=== PATIENT | male | born 1995 | race African-American/Black ===

== ENCOUNTER 2016-11-06 08:45 | Inpatient (IN) | payer OTHER, MEDICAID ==
[~2016-11-06] VITALS: Ht 182.9 cm; Wt 61.8 kg
[2016-11-06] VITALS (8 sets, daily range): BP systolic 113–134; BP diastolic 63–78; PULSE 62–83; RESP 15–18; TEMP 96.1–98.6; O2SAT 97–100
[2016-11-06 09:04] LABS: I-STAT POTASSIUM 3.4 MMOL/L (3.5-4.9)
[2016-11-06 09:05] LABS: AUTOMATED NEUTROPHIL # 6.1 TH/MM3 (1.8-7.7); BASOPHIL % 0.2 % (0.0-2.0); EOSINOPHIL % 0.3 % (0.0-4.0); HEMATOCRIT 40.1 % (39.0-51.0); LYMPH % 27.4 % (9.0-44.0); LYMPHOCYTE # 2.6 TH/MM3 (1.0-4.8); MEAN CELL VOLUME 80.1 FL (80.0-100.0); MEAN CORPUSCULAR HEMOGLOBIN 26.7 PG (27.0-34.0); MEAN CORPUSCULAR HGB CONC 33.4 % (32.0-36.0); MONO % 6.6 % (0.0-8.0); NEUT % 65.5 % (16.0-70.0); PLATELET COUNT 126 TH/MM3 (150-450); RED BLOOD COUNT 5.01 MIL/MM3 (4.50-5.90); RED CELL DISTRIBUTION WIDTH 13.3 % (11.6-17.2); WHITE BLOOD COUNT 9.3 TH/MM3 (4.0-11.0)
[2016-11-06 09:07] LABS: HEMO FLAGS AUTO DIFF
[2016-11-06 09:16] LABS: APTT (PATIENT) 23.9 SEC (24.3-30.1); PROTHROMBIN TIME - PATIENT 11.3 SEC (9.8-11.6)
[2016-11-06] MEDS ORDERED: IOHEXOL 350 MG/ML 10 ML VIAL (for RAD DIAG) IV ONE ×2 (09:21→15:28)
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
[2016-11-06] MEDS ORDERED: MORPHINE SULFATE 4 MG/ML INJ IV PUSH ONE (09:45)
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
[2016-11-06 09:56] LABS: BANDS 7 % (0-6); EOSINOPHILS 1 % (0-4); METAMYELOCYTES 3 % (0-1); NEUTROPHIL # MANUAL DIFF 5.8 TH/MM3 (1.8-7.7); POLYS (SEG NEUTROPHILS) 52 % (16-70); WBC DIFF SAMPLE 100
[2016-11-06 09:57] LABS: PLATELET ESTIMATE SMEAR LOW (NORMAL); PLATELET MORPHOLOGY NORMAL (NORMAL); SCAN/DIFF FINAL DIFF MANUAL
[2016-11-06] MEDS ORDERED: Post-op Orders (for Pharmacy) MISC XX ONE (10:00)
[2016-11-06] MEDS ORDERED: NALOXONE HCL 0.4 MG/ML AMP IV PRN (10:00)
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
[2016-11-06] MEDS: oxyCODONE/ACETAMINOPHEN 5 MG/325 MG TAB PO PRN ×2 (14:01→20:26)
[2016-11-06] MEDS ORDERED: LIDOCAINE HCL 5% PATCH T-DERMAL SCH (14:15)
[2016-11-06] MEDS: METHOCARBAMOL 500 MG TAB PO SCH ×3 (14:15→20:26)
[2016-11-06] MEDS: ONDANSETRON HCL 4 MG/2 ML VIAL IV PRN ×2 (15:10→23:28)
--- NOTE | 2016-11-06 15:53 | RADRPT ---
EXAM DATE/TIME: 11/06/2016 15:12 [facility] COMPARISON: CT CERVICAL SPINE W/O CONTRAST, November 06, 2016, 8:57. INDICATIONS : Evaluate for vertebral artery injury. IV CONTRAST: 65 cc Omnipaque 350 (iohexol) IV RADIATION DOSE: 28.49 CTDIvol (mGy) MEDICAL HISTORY : C1-C2 subluxation. SURGICAL HISTORY : None. ENCOUNTER: Initial ACUITY: 1 day PAIN SCALE: 9/10 LOCATION: Bilateral neck Elevated flow velocities and ICA/CCA ratios have been found to correlate with increased degrees of vessel stenosis, calculated as percentage of diameter relative to a normal segment of distal ICA/CCA. TECHNIQUE: Volumetric scanning was performed using a multirow detector CT scanner. The data was post processed with a variety of visualization algorithms including full-volume maximum intensity projection, multip lanar sliding thin-slab reformation, curved-planar reformation, and surface-rendering techniques. Us ing automated exposure control and adjustment of the mA and/or kV according to patient size, radiatio n dose was kept as low as reasonably achievable to obtain optimal diagnostic quality images. FINDINGS: AORTIC ARCH: There is a three-vessel origin of the great vessels from the aorta. No evidence of ostial narrowing. RIGHT CAROTID: The common carotid artery is intact. The carotid bulb has a normal configuration without ulceration o r narrowing. The internal carotid artery lumen is smooth without stenosis. The external carotid arcelia ry is intact. LEFT CAROTID: The common carotid artery is intact. The carotid bulb has a normal configuration without ulceration or narrowing. The internal carotid artery lumen is smooth without stenosis. The external carotid ar keanu is intact. VERTEBRALS: The vertebral arteries have a symmetric diameter. No stenotic lesions are seen. The right vertebral artery exits the foramen transversarium at the C4 level on the right side and then courses all the wa y down to insertion site onto the subclavian artery. There is no evidence for dissection of either of the vertebral arteries and theyappear patent. Fracture dislocation of C1-2 is again identified. CONCLUSION: Fracture dislocation of C1-2 and the vertebral arteries appear intact, however the right side exits t he foramen transversarium at the level of C4 and then courses down to insertion site onto the subclav glen artery. Otilio Abdalla MD on November 06, 2016 at 15:45 Board Certified Radiologist. This report was verified electronically.
[2016-11-06] MEDS: DOCUSATE SODIUM 100 MG CAP PO SCH (20:25)
[2016-11-06] MEDS: SODIUM CHLORIDE 0.9% FLUSH 10 ML FLUSH IV FLUSH SCH (20:27)
[2016-11-06] MEDS: MAGNESIUM HYDROXIDE SUSP 30 ML CUP PO SCH (20:28)
[2016-11-06] MEDS ORDERED: REMOVE OLD PATCH T-DERMAL SCH (21:00)
[2016-11-06] MEDS ORDERED: oxyCODONE/ACETAMINOPHEN 5 MG/325 MG TAB PO PRN (23:30)
[2016-11-07 00:51] VITALS: BP 131/78; PULSE 70; RESP 18; TEMP 97.6; O2SAT 100
[2016-11-07] MEDS: HYDROmorphone HCL PF 1 MG/ML VIAL IV PRN ×6 (01:46→22:40)
[2016-11-07 04:06] VITALS: BP 136/73; PULSE 70; RESP 17; TEMP 96.1; O2SAT 98
[2016-11-07] MEDS ORDERED: CHLORHEXIDINE GLUCONATE 2 % 1 PACK (2 CLOTHS) TOPICAL PRN (04:45)
[2016-11-07] MEDS ORDERED: SODIUM CHLORID 0.9% 500 ML IV PRN (04:45)
[2016-11-07] MEDS ORDERED: INSULIN HUMAN REGULAR 1,000 UNITS/10 ML VIAL SQ PRN (04:45)
[2016-11-07] MEDS ORDERED: POVIDONE IODINE 5% (ANTISEPSIS KIT) 4 APPLICATIONS EACH NARE PRN (04:45)
[2016-11-07] MEDS ORDERED: LACTATED RINGER'S 1000 ML IV PRN (04:45)
[2016-11-07] MEDS: METHOCARBAMOL 500 MG TAB PO SCH ×3 (04:55→19:32)
[2016-11-07] MEDS: REMOVE OLD PATCH T-DERMAL SCH (05:00)
[2016-11-07 05:12] LABS: AMPHETAMINE, URINE NEG (NEG); BARBITURATES, URINE NEG (NEG); COCAINE, URINE NEG (NEG)
--- NOTE | 2016-11-07 06:47 | RADRPT ---
EXAM DATE/TIME: 11/07/2016 06:00 [facility] COMPARISON: CHEST SINGLE AP, November 06, 2016, 8:39. INDICATIONS : Chest, neck and rib pain post trauma MEDICAL HISTORY : right rib fracture, possible contusion, small bilateral pneumothorax SURGICAL HISTORY : None. ENCOUNTER: Subsequent ACUITY: 1 day PAIN SCORE: 6/10 LOCATION: Bilateral chest FINDINGS: The cardiac silhouette is normal in transverse diameter. Tiny left apical pneumothorax is present. Co ntusion in the left base is evident. The right lung is free of acute parenchymal opacity. CONCLUSION: 1. Small left apical pneumothorax. Kwame Lopez MD on November 07, 2016 at 6:42 Board Certified Radiologist. This report was verified electronically.
[2016-11-07 07:29] VITALS: BP 111/66; PULSE 57; RESP 16; TEMP 96.3; O2SAT 100
[2016-11-07 07:35] LABS: AUTOMATED NEUTROPHIL # 9.4 TH/MM3 (1.8-7.7); BASOPHIL % 0.2 % (0.0-2.0); EOSINOPHIL % 0.3 % (0.0-4.0); HEMATOCRIT 37.7 % (39.0-51.0); LYMPH % 14.4 % (9.0-44.0); LYMPHOCYTE # 1.8 TH/MM3 (1.0-4.8); MEAN CELL VOLUME 79.9 FL (80.0-100.0); MEAN CORPUSCULAR HEMOGLOBIN 25.6 PG (27.0-34.0); MONO % 8.9 % (0.0-8.0); NEUT % 76.2 % (16.0-70.0); PLATELET COUNT 99 TH/MM3 (150-450); RED BLOOD COUNT 4.71 MIL/MM3 (4.50-5.90); RED CELL DISTRIBUTION WIDTH 13.5 % (11.6-17.2); WHITE BLOOD COUNT 12.3 TH/MM3 (4.0-11.0)
[2016-11-07 07:44] LABS: HEMO FLAGS AUTO DIFF
[2016-11-07 08:13] LABS: PLATELET ESTIMATE SMEAR LOW (NORMAL); PLATELET MORPHOLOGY NORMAL (NORMAL); SCAN/DIFF AUTO DIFF CONFIRMED
[2016-11-07 08:20] LABS: BICARBONATE 27.4 MEQ/L (21.0-32.0); POTASSIUM 3.4 MEQ/L (3.5-5.1)
[2016-11-07] MEDS: DOCUSATE SODIUM 100 MG CAP PO SCH ×2 (09:46→19:26)
[2016-11-07] MEDS: SODIUM CHLORIDE 0.9% FLUSH 10 ML FLUSH IV FLUSH SCH ×2 (09:47→19:27)
[2016-11-07] MEDS: PANTOPRAZOLE SOD 40 MG DELAYED RELEASE TAB PO SCH ×2 (09:51→10:00)
[2016-11-07] MEDS: SODIUM CHLORIDE 0.9% FLUSH 10 ML FLUSH IV FLUSH PRN ×2 (10:15→14:57)
[2016-11-07] MEDS ORDERED: POTASSIUM CHLORIDE 20 MEQ CONTROLLED RELEASE TAB PO ONE (11:45)
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
[2016-11-07 12:00] VITALS: BP 116/72; PULSE 58; RESP 16; TEMP 96; O2SAT 100
[2016-11-07 15:10] VITALS: BP 127/66; PULSE 59; RESP 16; TEMP 96.6; O2SAT 100
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
[2016-11-07] MEDS: SODIUM CHLOR 0.9% 1000 ML INJ 1,000 ML IV SCH (16:36)
[2016-11-07] MEDS: LIDOCAINE HCL 5% PATCH T-DERMAL SCH (17:30)
[2016-11-07] MEDS: MAGNESIUM HYDROXIDE SUSP 30 ML CUP PO SCH (19:28)
[2016-11-07 20:00] VITALS: BP 133/71; PULSE 55; RESP 17; TEMP 95.6; O2SAT 100
[2016-11-08] VITALS: BP 129/65; PULSE 58; RESP 16; TEMP 96.5; O2SAT 98
[2016-11-08] MEDS: diphenhydrAMINE HCL 50 MG/ML VIAL IV PUSH PRN (00:56)
[2016-11-08] MEDS: SODIUM CHLOR 0.9% 1000 ML INJ 1,000 ML IV SCH ×2 (00:56→14:51)
[2016-11-08] MEDS: HYDROmorphone HCL PF 1 MG/ML VIAL IV PRN ×6 (02:14→22:51)
[2016-11-08 04:00] VITALS: BP 131/70; PULSE 58; RESP 17; TEMP 96.9; O2SAT 97
[2016-11-08] MEDS: REMOVE OLD PATCH T-DERMAL SCH (05:00)
[2016-11-08] MEDS: METHOCARBAMOL 500 MG TAB PO SCH ×3 (05:25→21:54)
[2016-11-08 06:57] LABS: HEMATOCRIT 37.3 % (39.0-51.0); MEAN CELL VOLUME 80.5 FL (80.0-100.0); MEAN CORPUSCULAR HGB CONC 32.3 % (32.0-36.0); PLATELET COUNT 99 TH/MM3 (150-450); RED BLOOD COUNT 4.64 MIL/MM3 (4.50-5.90); RED CELL DISTRIBUTION WIDTH 13.3 % (11.6-17.2)
[2016-11-08 07:12] LABS: REVIEW FLAG FINAL
--- NOTE | 2016-11-08 07:12 | RADRPT ---
EXAM DATE/TIME: 11/08/2016 05:41 [facility] COMPARISON: CHEST SINGLE AP, November 07, 2016, 6:00. INDICATIONS : Chest , neck and rib pain, short of breath, evaluate left pneumothorax MEDICAL HISTORY : cervical spine fracture, pneumothorax, rib fracture SURGICAL HISTORY : None. ENCOUNTER: Subsequent ACUITY: 2 days PAIN SCORE: 6/10 LOCATION: Left chest FINDINGS: Compare with November 07. Again seen is a pneumatocele in the lower left lung likely associated with trauma and small lung laceration. There is some increased fluid and airspace disease around the pneumatocel e compared with November 07. No significant effusion. Right lung remains clear. Heart size normal. CONCLUSION: 1. Slight increase in fluid and airspace disease around left-sided pneumatocele that is likely relate d to a small lung laceration and associated contusion. Right lung remains clear. No pneumothorax iden tified. Pradeep Torres MD on November 08, 2016 at 7:06 Board Certified Radiologist. This report was verified electronically.
[2016-11-08 07:28] LABS: BICARBONATE 26.4 MEQ/L (21.0-32.0); MAGNESIUM 1.9 MG/DL (1.5-2.5); POTASSIUM 3.9 MEQ/L (3.5-5.1)
[2016-11-08 08:02] VITALS: BP 129/76; PULSE 69; RESP 18; TEMP 97.9; O2SAT 99
[2016-11-08] MEDS: SODIUM CHLORIDE 0.9% FLUSH 10 ML FLUSH IV FLUSH SCH ×2 (08:33→19:34)
[2016-11-08] MEDS: DOCUSATE SODIUM 100 MG CAP PO SCH ×3 (08:34→21:55)
[2016-11-08] MEDS: PANTOPRAZOLE SOD 40 MG DELAYED RELEASE TAB PO SCH (08:34)
[2016-11-08] MEDS: diphenhydrAMINE HCL 50 MG CAP PO PRN ×3 (08:35→21:55)
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
[2016-11-08] MEDS ORDERED: LIDOCAINE 1%/EPINEPHrine 1:100,000 SOLN 50 ML VIAL ONE (10:31)
--- NOTE | 2016-11-08 10:32 | RADRPT ---
EXAM DATE/TIME: 11/08/2016 10:14 [facility] COMPARISON: CT BRAIN W/O CONTRAST, November 06, 2016, 8:57. INDICATIONS : Altered mental status. RADIATION DOSE: 56.35 CTDIvol (mGy) MEDICAL HISTORY : None SURGICAL HISTORY : None. ENCOUNTER: Initial ACUITY: 1 day PAIN SCALE: 0/10 LOCATION: cranial TECHNIQUE: Multiple contiguous axial images were obtained of the head. Using automated exposure control and adj ustment of the mA and/or kV according to patient size, radiation dose was kept as low as reasonably a chievable to obtain optimal diagnostic quality images. FINDINGS: CEREBRUM: The ventricles are normal for age. No evidence of midline shift, mass lesion, hemorrhage or acute in farction. No extra-axial fluid collections are seen. POSTERIOR FOSSA: The cerebellum and brainstem are intact. The 4th ventricle is midline. The cerebellopontine angle i s unremarkable. EXTRACRANIAL: The visualized portion of the orbits is intact. SKULL: The calvaria is intact. No evidence of skull fracture. CONCLUSION: No acute disease. Velasquez Callahan MD on November 08, 2016 at 10:24 Board Certified Radiologist. This report was verified electronically.
[2016-11-08] MEDS ORDERED: KETAMINE HCL 500 MG/5 ML VIAL IV ONE (12:00)
[2016-11-08] MEDS ORDERED: PROPOFOL 200 MG/20 ML AMP IV ONE (12:00)
[2016-11-08] MEDS ORDERED: DO NOT ADM ANY ANTICOAGULANT DRUGS PRN (12:06)
[2016-11-08] MEDS ORDERED: *morphine SULFATE 8 MG/ML PERIprocedure ONLY ONE (12:26)
--- NOTE | 2016-11-08 12:32 | PD.OP ---
Operative Report Date of Surgery: November 08, 2016 Preoperative Diagnosis: (1) Cervical spine fracture (2) C1-C2 subluxation C1-2 right lateral mass fracture-rotational subluxation with locked lateral mass. Postoperative Diagnosis: (1) Cervical spine fracture (2) C1-C2 subluxation C1-2 right lateral mass fracture-rotational subluxation with locked lateral mass. Procedure: 1. Intraoperative closed reduction C1-2 rotational subluxation with locked lateral mass 2. Halo placement Anesthesia: Conscious sedation, local anesthesia 1% Xylocaine Surgeon: Milan Hernández Verifier Operator(s): Lobo Koenig Operation and Findings: The procedure was performed in the operating room The procedure was discussed with the patient and family prior to surgery and consent obtained and signed by the patient's mother. Appropriate time out procedure was performed with all personal present and in agreement The patient was transferred to the 3080 table on the spine board in supine position with cervical collar in place. He was then lifted onto the back of the halo vest and the anterior vest was in position and the straps secured. The undersigned controlled positioning of the head and neck throughout the procedure. The bilateral occipital region was shaved with the clippers and the frontal and occipital regions sterilely prepped with Betadine. 1% Xylocaine with epinephrine was used for local infiltration with the pin placement sites The undersigned maintained control of the head ring which was held in proper position and the frontal and occipital pins were simultaneously advanced into the cranium using finger pressure, followed by final tightening with the torque wrench. The locking nuts were secured. With the patient awake enough to consistently follow commands, the locked lateral mass on the right C1 2 level was reduced by the undersigned initially using gentle traction and left lateral flexion followed by gentle rotation towards the right side. The lateral mass was felt to gently slip into place at which point further reduction of the rotation was performed. Once the rotational subluxation was reduced, and open-mouth odontoid and lateral x-ray was performed to confirm proper reduction. The posts were then placed into the anterior and posterior halo vest and ring and secured with the torque wrench with the undersigned maintaining control of the head and neck The position of the head and neck were then checked with x-ray and felt to be satisfactory. Final check was made of all halo connections to certain that they were secure. There is no blood loss. No specimen was sent The patient's neurologic function remained stable following the procedure. Milan Hernández MD November 08, 2016 12:32
--- NOTE | 2016-11-08 14:02 | RADRPT ---
EXAM DATE/TIME: 11/08/2016 11:37 [facility] COMPARISON: CT CERVICAL SPINE W/O CONTRAST, November 06, 2016, 8:57. INDICATIONS : Reduction C1-C2 fracture with halo placement. MEDICAL HISTORY : None. SURGICAL HISTORY : None. ENCOUNTER: Initial ACUITY: 1 day PAIN SCORE: Non-responsive. LOCATION: cervical spine FINDINGS: 2 magnified C-arm spot views are a lateral view of the upper cervical spine and open mouth odontoid v iew. The open-mouth odontoid view shows the teeth and maxilla obscuring the dens. Lateral projection shows gross normal anatomical alignment. No gross fracture on these limited images. Paraspinal soft t issues show mild widening at the C2 level. CONCLUSION: Limited images as detailed above. Clyde Campbell Jr., MD on November 08, 2016 at 13:57 Board Certified Radiologist. This report was verified electronically.
--- NOTE | 2016-11-08 14:18 | RADRPT ---
EXAM DATE/TIME: 11/08/2016 13:40 [facility] COMPARISON: CT CERVICAL SPINE W/O CONTRAST, November 06, 2016, 8:57. INDICATIONS : POST OP HALO, C1-C2 SUBLUXATION. RADIATION DOSE: 24.42 CTDIvol (mGy) MEDICAL HISTORY : None SURGICAL HISTORY : None. ENCOUNTER: Subsequent ACUITY: 1 day PAIN SCALE: 3/10 LOCATION: neck TECHNIQUE: Volumetric scanning of the cervical spine was performed. Multiplanar reconstructions in the sagittal, coronal and oblique axial planes were performed. Using automated exposure control and adjustment o f the mA and/or kV according to patient size, radiation dose was kept as low as reasonably achievable to obtain optimal diagnostic quality images. FINDINGS: The rotatory subluxation previously seen at C2-C3 has been significantly reduced. No widening of the facets at C2-C3 and C3-C4 on the right is also resolved. A fracture is again seen involving the right lateral mass of C2. This is unchanged in appearance. It does extend through the foramen transversari um. The central canal is patent throughout. Tiny bilateral pneumothoraces are seen. These are stable in size. CONCLUSION: 1. Significant reduction of the rotatory subluxation at C2-C3. 2. Right lateral mass C2 fracture is unchanged. 3. Tiny bilateral pneumothoraces are stable. Clyde Campbell Jr., MD on November 08, 2016 at 14:07 Board Certified Radiologist. This report was verified electronically.
[2016-11-08 15:09] VITALS: BP 103/59
[2016-11-08 16:16] VITALS: O2SAT 95
[2016-11-08] MEDS: LIDOCAINE HCL 5% PATCH T-DERMAL SCH (16:32)
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
[2016-11-08 20:25] VITALS: BP 129/74; PULSE 63; RESP 16; TEMP 98; O2SAT 100
[2016-11-08] MEDS: MAGNESIUM HYDROXIDE SUSP 30 ML CUP PO SCH (21:00)
[2016-11-09] VITALS (7 sets, daily range): BP systolic 128–155; BP diastolic 75–88; PULSE 56–73; RESP 16–18; TEMP 96.7–98.6; O2SAT 95–99
[2016-11-09] MEDS: SODIUM CHLOR 0.9% 1000 ML INJ 1,000 ML IV SCH ×2 (00:59→08:33)
[2016-11-09] MEDS: HYDROmorphone HCL PF 1 MG/ML VIAL IV PRN ×6 (02:27→22:20)
[2016-11-09] MEDS: ONDANSETRON HCL 4 MG/2 ML VIAL IV PRN ×2 (02:33→08:32)
[2016-11-09] MEDS: REMOVE OLD PATCH T-DERMAL SCH (05:00)
[2016-11-09] MEDS: diphenhydrAMINE HCL 50 MG/ML VIAL IV PUSH PRN (05:29)
[2016-11-09] MEDS: MAGNESIUM HYDROXIDE SUSP 30 ML CUP PO SCH ×2 (05:30→20:08)
[2016-11-09] MEDS: METHOCARBAMOL 500 MG TAB PO SCH ×3 (05:30→22:19)
[2016-11-09 05:55] LABS: AUTOMATED NEUTROPHIL # 7.9 TH/MM3 (1.8-7.7); BASOPHIL % 0.3 % (0.0-2.0); EOSINOPHIL % 0.4 % (0.0-4.0); HEMATOCRIT 37.5 % (39.0-51.0); HEMO FLAGS DIFF FINAL; LYMPH % 9.1 % (9.0-44.0); LYMPHOCYTE # 0.9 TH/MM3 (1.0-4.8); MEAN CELL VOLUME 80.5 FL (80.0-100.0); MEAN CORPUSCULAR HEMOGLOBIN 26.3 PG (27.0-34.0); MEAN CORPUSCULAR HGB CONC 32.6 % (32.0-36.0); MONO % 7.7 % (0.0-8.0); NEUT % 82.5 % (16.0-70.0); PLATELET COUNT 100 TH/MM3 (150-450); RED BLOOD COUNT 4.66 MIL/MM3 (4.50-5.90); RED CELL DISTRIBUTION WIDTH 13.1 % (11.6-17.2); WHITE BLOOD COUNT 9.6 TH/MM3 (4.0-11.0)
[2016-11-09 06:16] LABS: ANION GAP 8 MEQ/L (5-15); AST (GOT) 49 U/L (15-39); BICARBONATE 27.4 MEQ/L (21.0-32.0); BLOOD UREA NITROGEN 9 MG/DL (7-18); CHLORIDE 104 MEQ/L (98-107); GLOMERULAR FILTRATION RATE 163 ML/MIN (>89); POTASSIUM 3.8 MEQ/L (3.5-5.1); SODIUM (NA) 139 MEQ/L (136-145)
[2016-11-09 06:20] LABS: ALKALINE PHOSPHATASE 62 U/L (45-117); ALT (GPT) 40 U/L (9-52); TOTAL BILIRUBIN ADULT 0.5 MG/DL (0.2-1.0)
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
[2016-11-09] MEDS: DOCUSATE SODIUM 100 MG CAP PO SCH ×2 (08:31→20:07)
[2016-11-09] MEDS: PANTOPRAZOLE SOD 40 MG DELAYED RELEASE TAB PO SCH (08:31)
[2016-11-09] MEDS: SODIUM CHLORIDE 0.9% FLUSH 10 ML FLUSH IV FLUSH SCH ×2 (08:33→20:08)
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
[2016-11-09] MEDS: diphenhydrAMINE HCL 50 MG CAP PO PRN ×2 (13:54→20:07)
[2016-11-09] MEDS: LIDOCAINE HCL 5% PATCH T-DERMAL SCH (18:17)
[2016-11-10 00:15] VITALS: BP 154/90; PULSE 92; RESP 16; TEMP 96.4; O2SAT 97
[2016-11-10] MEDS: diphenhydrAMINE HCL 50 MG CAP PO PRN ×2 (01:27→08:18)
[2016-11-10] MEDS: HYDROmorphone HCL PF 1 MG/ML VIAL IV PRN ×6 (01:31→21:34)
[2016-11-10] MEDS: REMOVE OLD PATCH T-DERMAL SCH (04:45)
[2016-11-10] MEDS: ONDANSETRON HCL 4 MG/2 ML VIAL IV PRN ×2 (04:58→18:58)
[2016-11-10] MEDS: METHOCARBAMOL 500 MG TAB PO SCH ×3 (06:00→21:32)
[2016-11-10 08:00] VITALS: BP 152/88; PULSE 74; RESP 18; TEMP 98.7; O2SAT 96
[2016-11-10] MEDS: PANTOPRAZOLE SOD 40 MG DELAYED RELEASE TAB PO SCH (08:18)
[2016-11-10] MEDS: SODIUM CHLORIDE 0.9% FLUSH 10 ML FLUSH IV FLUSH SCH ×2 (08:19→21:33)
[2016-11-10] MEDS: DOCUSATE SODIUM 100 MG CAP PO SCH (08:23)
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
[2016-11-10 12:00] VITALS: BP 151/79; PULSE 67; RESP 18; TEMP 97.6; O2SAT 98
--- NOTE | 2016-11-10 12:58 | HHI.PR ---
Subjective Subjective Notes Pain controlled. Stood with physical therapy today Objective Vitals/I&O Vital Signs Date Time Temp Pulse Resp B/P Pulse Ox O2 Delivery O2 Flow Rate FiO2 11/10/16 08:00 98.7 74 18 152/88 96 11/09/16 21:49 21 11/09/16 21:20 Room Air 11/09/16 09:36 2.00 Labs Laboratory Tests Test 11/06/16 11/07/16 11/07/16 11/08/16 08:50 04:55 06:50 06:24 Bedside Hemoglobin 14.3 G/DL Bedside Hematocrit 42.0 % Differential Total Cells 100 Counted Neutrophils % (Manual) 52 % Band Neutrophils % 7 % Lymphocytes % 30 % Monocytes % 7 % Eosinophils % 1 % Neutrophils # (Manual) 5.8 TH/MM3 Metamyelocytes 3 % Red Cell Morphology Comment NORMAL Prothrombin Time 11.3 SEC Prothromb Time International 1.0 RATIO Ratio Activated Partial 23.9 SEC Thromboplast Time Bedside Sodium 143 MMOL/L Bedside Potassium 3.4 MMOL/L Bedside Chloride 105 MMOL/L Bedside Blood Urea Nitrogen 10 MG/DL Bedside Creatinine 1.0 MG/DL Bedside Glucose 145 MG/DL Ethyl Alcohol Level 42 MG/DL Blood Type B POSITIVE Antibody Screen NEGATIVE Urine Opiates Screen POS Urine Barbiturates Screen NEG Urine Amphetamines Screen NEG Urine Benzodiazepines Screen NEG Urine Cocaine Screen NEG Urine Cannabinoids Screen POS Platelet Estimate LOW Platelet Morphology Comment NORMAL Magnesium Level 1.9 MG/DL Test 11/09/16 03:57 White Blood Count 9.6 TH/MM3 Red Blood Count 4.66 MIL/MM3 Hemoglobin 12.2 GM/DL Hematocrit 37.5 % Mean Corpuscular Volume 80.5 FL Mean Corpuscular Hemoglobin 26.3 PG Mean Corpuscular Hemoglobin 32.6 % Concent Red Cell Distribution Width 13.1 % Platelet Count 100 TH/MM3 Mean Platelet Volume 10.7 FL Neutrophils (%) (Auto) 82.5 % Lymphocytes (%) (Auto) 9.1 % Monocytes (%) (Auto) 7.7 % Eosinophils (%) (Auto) 0.4 % Basophils (%) (Auto) 0.3 % Neutrophils # (Auto) 7.9 TH/MM3 Lymphocytes # (Auto) 0.9 TH/MM3 Monocytes # (Auto) 0.7 TH/MM3 Eosinophils # (Auto) 0.0 TH/MM3 Basophils # (Auto) 0.0 TH/MM3 CBC Comment DIFF FINAL Differential Comment Sodium Level 139 MEQ/L Potassium Level 3.8 MEQ/L Chloride Level 104 MEQ/L Carbon Dioxide Level 27.4 MEQ/L Anion Gap 8 MEQ/L Blood Urea Nitrogen 9 MG/DL Creatinine 0.74 MG/DL Estimat Glomerular Filtration 163 ML/MIN Rate Random Glucose 87 MG/DL Calcium Level 8.8 MG/DL Total Bilirubin 0.5 MG/DL Aspartate Amino Transf 49 U/L (AST/SGOT) Alanine Aminotransferase 40 U/L (ALT/SGPT) Alkaline Phosphatase 62 U/L Total Protein 7.0 GM/DL Albumin 3.4 GM/DL Radiology Last Impressions Chest X-Ray 11/07/16 0600 Signed Impressions: Service Date/Time: Monday, November 07, 2016 06:00 - CONCLUSION: 1. Small left apical pneumothorax. Kwame Lopez MD Thoracic Spine CT 11/06/16847 Signed Impressions: Service Date/Time: Sunday, November 06, 2016 09:12 - CONCLUSION: Thoracic spine CT within normal limits. Nicanor Patel MD Lumbar Spine CT 11/06/16847 Signed Impressions: Service Date/Time: Sunday, November 06, 2016 09:12 - CONCLUSION: Lumbar spine CT within normal limits. Nicanor Patel MD Head CT 11/06/16847 Signed Impressions: Service Date/Time: Sunday, November 06, 2016 08:57 - CONCLUSION: No acute intracranial findings. Nicanor Patel MD Chest CT 11/06/16847 Signed Impressions: Service Date/Time: Sunday, November 06, 2016 09:12 - CONCLUSION: 1. Small bilateral pneumothoraces. 2. Right first rib fracture. 3. Moderate severity groundglass opacity the left lung and mild groundglass opacity in the right lung. Findings are nonspecific. In the setting of acute trauma these findings suggest contusion. 4. Several thin-walled cavities with air-fluid levels in the left lung likely representing post traumatic pneumatoceles. Nicanor Patel MD Cervical Spine CT 11/06/16847 Signed Impressions: Service Date/Time: Sunday, November 06, 2016 08:57 - CONCLUSION: 1. Fracture of the anterior aspect of the right side of the body of C2. 2. Rotary subluxation of C1 on C2. 3. Mild widening of the right-sided facet joints of C2-3 and C3- 4. 4. Bilateral apical pneumothoraces noted Nicanor Patel MD Abdomen/Pelvis CT 11/06/16 0848 Signed Impressions: Service Date/Time: Sunday, November 06, 2016 09:12 - CONCLUSION: No acute findings in the abdomen and pelvis. Nicanor Patel MD Neck CTA 11/06/16 0000 Signed Impressions: Service Date/Time: Sunday, November 06, 2016 15:12 - CONCLUSION: Fracture dislocation of C1-2 and the vertebral arteries appear intact, however the right side exits the foramen transversarium at the level of C4 and then courses down to insertion site onto the subclavian artery. Otilio Abdalla MD Narrative Exam GENERAL: 21-year-old well-nourished well-developed male lying in bed. SKIN: Warm and dry. HEAD: Normocephalic. Halo in place, pin sites clean and dry. ENT: No nasal bleeding or discharge. Mucous membranes pink and moist. NECK: Trachea midline. No JVD. CARDIOVASCULAR: Regular rate and rhythm. RESPIRATORY: Lungs are clear and diminished to auscultation. Breath sounds equal bilaterally. No distress or dyspnea. GASTROINTESTINAL: BS + x 4 quads. Abdomen soft, non-tender, nondistended. MUSCULOSKELETAL: Extremities without cyanosis, or edema. + peripheral pulses x 4 extremities. Warm with good capillary refill and sensation. MAEW. NEUROLOGICAL: Resting with eyes closed, arouses to voice. Speech clear. A/P Problem List: (1) Cervical spine fracture (2) Lung contusion Assessment and Plan INJURIES: C2 fx w/ subluxation C1-C2 RIGHT rib fx (1) Bilateral apical PTX LEFT lung contusion Procedures: 11/07: Reduction of C1-C2 under CT guidance. 11/08: Reduction of C1-C2 subluxation w/ halo placement and posterior fusion C1- C2 Diet: Nothing by mouth for OR today Pulm: IS, encourage patient use pain: Dilaudid IV. Robaxin. Lidoderm patch. Pain controlled. Activity: OOB. PT and OT evaluating. Patient stood at bedside today. GI: Protonix po Bowel: Pricila-Colace 2 tabs BID. No BM yet DVT: SCD's -C2 fx w/ subluxation C1-C2 Halo in place, posterior fusion C1-C2 on 11/08 Neurosurgery following Going to OR today for C1-C2 fusion PT, OOB -RIGHT rib fx, LEFT lung contusion Pulmonary toileting TCDB OOB - Bilateral apical pneumothorax Resolved Case management consulted for discharge planning. Patient will need inpatient rehabilitation placement. Plan of care discussed with patient and his mother at bedside. Remarks seen and examined with DIRECT SUPPORT PROFESSIONAL-agree with assessment and plan or for open fixation with NS stable from trauma standpoint Problem Qualifiers (1) Cervical spine fracture: Qualified Code: S12.190A - Other closed displaced fracture of second cervical vertebra, initial encounter (2) Lung contusion: Qualified Code: S27.321A - Contusion of left lung, initial encounter Gene Vieira November 10, 2016 12:58 Hortencia Rodriguez MD November 10, 2016 13:53
[2016-11-10] MEDS: SODIUM CHLORIDE 0.9% FLUSH 10 ML FLUSH IV FLUSH PRN ×2 (13:33→18:38)
[2016-11-10 16:00] VITALS: BP 151/83; PULSE 75; RESP 18; TEMP 97; O2SAT 98
[2016-11-10] MEDS: LIDOCAINE HCL 5% PATCH T-DERMAL SCH (18:41)
[2016-11-10 20:02] VITALS: BP 148/80; PULSE 74; RESP 18; TEMP 97; O2SAT 97
[2016-11-10] MEDS: DOCUSATE SODIUM 50 MG/SENNA 8.6 MG TAB PO SCH (21:33)
[2016-11-11] VITALS: BP 128/88; PULSE 79; RESP 17; TEMP 97.7; O2SAT 100
[2016-11-11] MEDS: HYDROmorphone HCL PF 1 MG/ML VIAL IV PRN ×3 (00:44→09:09)
[2016-11-11] MEDS: REMOVE OLD PATCH T-DERMAL SCH (05:00)
[2016-11-11] MEDS: METHOCARBAMOL 500 MG TAB PO SCH ×2 (05:01→13:39)
[2016-11-11 07:57] VITALS: BP 134/91; PULSE 75; RESP 19; TEMP 95.8; O2SAT 98
[2016-11-11] MEDS: DOCUSATE SODIUM 50 MG/SENNA 8.6 MG TAB PO SCH (09:09)
[2016-11-11] MEDS: SODIUM CHLORIDE 0.9% FLUSH 10 ML FLUSH IV FLUSH SCH (09:09)
[2016-11-11] MEDS: PANTOPRAZOLE SOD 40 MG DELAYED RELEASE TAB PO SCH (09:14)
[2016-11-11 09:15] LABS: AUTOMATED NEUTROPHIL # 7.9 TH/MM3 (1.8-7.7); BASOPHIL % 0.4 % (0.0-2.0); EOSINOPHIL % 0.4 % (0.0-4.0); HEMATOCRIT 42.8 % (39.0-51.0); HEMO FLAGS DIFF FINAL; MEAN CELL VOLUME 79.3 FL (80.0-100.0); MEAN CORPUSCULAR HEMOGLOBIN 26.1 PG (27.0-34.0); MEAN CORPUSCULAR HGB CONC 32.9 % (32.0-36.0); NEUT % 79.2 % (16.0-70.0); PLATELET COUNT 129 TH/MM3 (150-450); RED CELL DISTRIBUTION WIDTH 12.9 % (11.6-17.2)
[2016-11-11 09:40] LABS: ANION GAP 9 MEQ/L (5-15); BICARBONATE 25.6 MEQ/L (21.0-32.0); BLOOD UREA NITROGEN 14 MG/DL (7-18); CHLORIDE 100 MEQ/L (98-107); GLOMERULAR FILTRATION RATE 134 ML/MIN (>89); POTASSIUM 4.1 MEQ/L (3.5-5.1); SODIUM (NA) 135 MEQ/L (136-145)
[2016-11-11 09:45] LABS: ALKALINE PHOSPHATASE 72 U/L (45-117); ALT (GPT) 32 U/L (9-52); AST (GOT) 27 U/L (15-39); TOTAL BILIRUBIN ADULT 0.6 MG/DL (0.2-1.0)
[2016-11-11 12:00] VITALS: BP 123/92; PULSE 80; RESP 16; TEMP 96; O2SAT 98
[2016-11-11] MEDS: oxyCODONE/ACETAMINOPHEN 5 MG/325 MG TAB PO PRN ×2 (12:20→17:01)
[2016-11-11] MEDS ORDERED: OXYC1TAB63 PO (12:38)
[2016-11-11] MEDS ORDERED: SENN1TAB PO (12:38)
[2016-11-11] MEDS ORDERED: METH500T3 PO (12:38)
[2016-11-11] MEDS ORDERED: LACTULOSE SYRUP 20 GM/30 ML CUP PO ONE (13:00)
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
[2016-11-11] MEDS ORDERED: ENOX40P SQ (13:43)
[2016-11-11] MEDS ORDERED: ENOXAPARIN SODIUM 40 MG/0.4 ML SYRINGE SQ SCH (14:00)
[2016-11-11 16:00] VITALS: BP 135/82; PULSE 88; RESP 18; TEMP 96.8; O2SAT 98
[2016-11-11] MEDS: LIDOCAINE HCL 5% PATCH T-DERMAL SCH (17:01)
[2016-11-21] MEDS ORDERED: COMMODE 3-IN-11 MIS (15:05)
[2016-11-21] MEDS ORDERED: GETGO ROLLING W1 MI1 (15:05)
[2016-11-21] MEDS ORDERED: WHEEMIS3 (15:05)
[2016-11-22] MEDS ORDERED: SENN1TAB PO (10:42)
[2016-11-22] MEDS ORDERED: PROP10TA6 PO (10:42)
[2016-11-22] MEDS ORDERED: OXYC1TAB63 PO (10:42)
[2016-11-22] MEDS ORDERED: SCOP1PAT2 T-DERMAL (10:42)
[2016-11-24] MEDS ORDERED: HOSP BED2 (09:12)
[2016-11-24] MEDS ORDERED: HOSP BED1 (10:15)
== END 2016-11-11 18:33 | DRG 519 ==
LOC: NEPI 08:45 → NEDA 09:42 → EDBD 09:42 → N06A 13:31
PROVIDERS: ADMIT Surgery; ATTEND Surgery
PROC: 2W60X0Z Traction of Head using Traction Apparatus (ICD-10-PCS; 2016-11-08)
PROC: 0PS3XZZ Reposition Cervical Vertebra, External Approach (ICD-10-PCS; principal; 2016-11-08 11:06)
DX: S12.100A Unspecified displaced fracture of second cervical vertebra, initial encounter for closed fracture (principal); S27.321A Contusion of lung, unilateral, initial encounter; S27.0XXA Traumatic pneumothorax, initial encounter; S22.31XA Fracture of one rib, right side, initial encounter for closed fracture; F10.129 Alcohol abuse with intoxication, unspecified; F12.90 Cannabis use, unspecified, uncomplicated; V49.9XXA Car occupant (driver) (passenger) injured in unspecified traffic accident, initial encounter; Y90.2 Blood alcohol level of 40-59 mg/100 ml
CPT/HCPCS: 70450; 70498; 71010; 71260; 72040; 72125; 72128; 72131; 72141; 74177; 76000; 80048; 80053; 80307; 82435; 82565; 82947; 83735; 84132; 84295; 84520; 85007; 85025; 85027; 85610; 85730; 86850; 86900; 86901; 94150; 94640; 94667; 94668; 99291; A0431-QM-SH; A0436-QM-SH; G0390; J1170; J1200; J1650; J2270; J2405; J7030; L0150; L0810; Q0163; Q9967